=== PATIENT | female | born 2000 | race Caucasian/White ===

== ENCOUNTER 2021-04-22 02:01 | Emergency (ER) | payer BC, SELFPAY ==
[2021-04-22 02:04] VITALS: BP 95/72; PULSE 98; RESP 17; TEMP 36.6; O2SAT 100
--- NOTE | 2021-04-22 02:44 | ED.BACK ---
HPI - Back Pain/Injury General Chief Complaint: Back Pain/Injury <Jessica Fisher APRN - Last Filed: 04/22/21 02:52> Stated Complaint: Low back pain radiating down legs <Jessica Fisher APRN - Last Filed: 04/22/21 02:52> Time Seen by Provider: 04/22/21 02:11 <Jessica Fisher DIE TECHNICIAN - Last Filed: 04/22/21 02:52> Source: patient <Jessica Fisher APRN - Last Filed: 04/22/21 02:52> Mode of arrival: ambulatory <Jessica Fisher APRN - Last Filed: 04/22/21 02:52> Limitations: no limitations <Jessica Fisher APRN - Last Filed: 04/22/21 02:52> History of Present Illness HPI Narrative: 20 year old female presents today with complaints of mid back pain radiating down both legs. Pain started yesterday while she was lifting a heavy box. Patient has tried 400mg of ibuprofen without releif and has used heat and ice without relief. Denies urinary or bowel incontinence, weakness to the legs, or saddle paraesthesia. Patient denies IV drug usage, fevers, body aches, or chills. . <Jessica Fisher APRN - Last Filed: 04/22/21 02:52> Related Data Allergies/Adverse Reactions: Allergies Allergy/AdvReac Type Severity Reaction Status Date / Time No Known Allergies Allergy Verified 04/22/21 02:44 <Jessica Fisher APRN - Last Filed: 04/22/21 02:52> Review of Systems Review of Systems: CONSTITUTIONAL: Denies fever, chills, or sweats. EYES: Denies visual changes, redness, or discharge. ENT: Denies rhinorrhea, congestion, sore throat, or otalgia. CARDIOVASCULAR: Denies chest pain, palpitations, or edema. RESPIRATORY: Denies cough or dyspnea. GASTROINTESTINAL: Denies abdominal pain, nausea, vomiting, or diarrhea. GENITOURINARY: Denies dysuria or hematuria. SKIN: Denies rash or itching. MUSCULOSKELETAL: Positive for back pain. Denies joint pain, or myalgia. NEUROLOGIC: Denies headache, numbness, dizziness, or weakness. PSYCHIATRIC: Denies anxiety or depression. <Jessica Fisher, DIE TECHNICIAN - Last Filed: 04/22/21 02:52> Exam Narrative: GENERAL: Well-appearing, well-nourished, and in no acute distress. HEAD: Normocephalic, atraumatic. EYES: PERRLA and EOMI. ENT: Nares clear, no rhinorrhea or epistaxis. Mucous membranes moist. Oropharynx without tonsillar hypertrophy exudate or other lesions. Bilateral TMs pearly frankel nonbulging NECK: Supple. No adenopathy or masses. No carotid bruits or JVD CHEST: Clear to auscultation. No respiratory distress. No wheezes rales or rhonchi HEART: Regular rate and rhythm. No murmur heard. Normal peripheral pulses. ABDOMEN: Soft, nontender, nondistended, normal active bowel sounds. EXTREMITIES: Normal range of motion. No edema. BACK/SPINE: No spinal process tenderness. No spasm noted at current time. Positive right and left straight leg raises. Right leg positive at 30 degrees left leg positive at 15 degrees. Decreased range of motion noted due to pain. SKIN: Warm, dry, no rash. NEURO: No focal deficits. Alert and oriented x3. PSYCH: Normal mood and affect. <Jessica Fisher, DIE TECHNICIAN - Last Filed: 04/22/21 02:52> Course Vital Signs Vital signs: Vital Signs Temperature 97.9 F 04/22/21 02:04 Pulse Rate 98 04/22/21 02:04 Respiratory Rate 17 04/22/21 02:04 Blood Pressure 95/72 L 04/22/21 02:04 Pulse Oximetry 100 04/22/21 02:04 Temperature 97.9 F 04/22/21 02:04 Pulse Rate 68 04/22/21 03:01 Respiratory Rate 16 04/22/21 03:01 Blood Pressure 128/74 04/22/21 03:01 Pulse Oximetry 98 04/22/21 03:01 <Jessica Fisher, DIE TECHNICIAN - Last Filed: 04/22/21 02:52> MDM - Back Pain/Injury MDM Narrative Medical decision making narrative: Patient's pain is positional in nature and localized to back without signs of cord compression or cauda equina based on neurological exam, skeletal exam and history. No fever or other significant factors to suggest osteomyelitis or spinal epidural abscess. No symptoms or signs to suggest pain is referred from abdominal or
[2021-04-22] MEDS: IBUPROFEN 400 MG TABLET 800 MG PO (02:48)
[2021-04-22] MEDS: CYCLOBENZAPRINE HCL 10 MG TABLET PO (02:48)
[2021-04-22 03:01] VITALS: BP 128/74; PULSE 68; RESP 16; O2SAT 98
== END 2021-04-22 03:02 | disposition home or self-care (01) ==
PROVIDERS: Emergency Provider Nurse Practitioner Family; PCP Pediatrics Adolescent Medicine
DX: S39.012A Strain of muscle, fascia and tendon of lower back, initial encounter (principal); M54.31 Sciatica, right side; X50.0XXA Overexertion from strenuous movement or load, initial encounter
CPT/HCPCS: 99283; A9270